=== PATIENT | female | born 1965 ===

== ENCOUNTER 2023-07-01 07:05 | Day surgery (SDC) | payer OTHER | END 2023-07-01 12:40 | disposition home or self-care (01) | LOC: AMB-ENDOS 07:05 | PROVIDERS: ATTEND Surgery | DX: D12.3 Benign neoplasm of transverse colon (principal); D12.5 Benign neoplasm of sigmoid colon; Z20.822 Contact with and (suspected) exposure to COVID-19; K57.30 Diverticulosis of large intestine without perforation or abscess without bleeding ==